=== PATIENT | female | born 1955 | race Caucasian/White ===

== ENCOUNTER 2023-06-03 08:05 | Inpatient (IN) ==
--- NOTE | 2023-05-17 12:15 | PAT Medication Instructions ---
Medication Instructions Date of Service May 17, 2023 Home Medications acetaminophen 325 mg capsule 325 mg PO QID PRN atorvastatin 20 mg tablet (Lipitor) 20 mg PO HS calcium carbonate 600 mg calcium (1,500 mg) tablet (Calcium) 600 mg PO HS cholecalciferol (vitamin D3) 25 mcg (1,000 unit) tablet (Vitamin D3) 25 mcg PO HS famotidine 20 mg tablet (Pepcid) 20 mg PO BID lisinopril 20 mg tablet 20 mg PO QAM multivitamin 1 tab PO QAM DO NOT take the morning of surgery lisinopril 20 mg tablet 20 mg PO QAM multivitamin 1 tab PO QAM Take morning of surgery With a small sip of water, OTHERWISE NOTHING TO EAT OR DRINK AFTER MIDNIGHT: acetaminophen 325 mg capsule 325 mg PO QID PRN(if needed) famotidine 20 mg tablet (Pepcid) 20 mg PO BID Take evening before surgery acetaminophen 325 mg capsule 325 mg PO QID PRN(if needed) atorvastatin 20 mg tablet (Lipitor) 20 mg PO HS calcium carbonate 600 mg calcium (1,500 mg) tablet (Calcium) 600 mg PO HS cholecalciferol (vitamin D3) 25 mcg (1,000 unit) tablet (Vitamin D3) 25 mcg PO HS famotidine 20 mg tablet (Pepcid) 20 mg PO BID Other Notes If you have any questions please call us at [phone] or [phone] or [phone] or [phone]
--- NOTE | 2023-05-19 10:45 | Anesthesiology Consultation ---
Date of Service May 19, 2023 Assessment & Plan (1) Encounter for pre-operative examination: Chart Review Chart Review: Acceptable Risk for Surgery (pending PCP clearance ) and Patient seen in Pre Admission Testing - Awaiting PCP in office clearance 05/23/23 (Dr. He Casas) (please fax preop testing to PCP to review at clearance appt) Per PAT appt on 05/19/23, no recent illness/disease exposures, illness related symptoms, or recent illness/disease positive tests. Will leave to surgeon's discretion if preop Covid testing needed PCP clearance letter 05/17/23= "Moderate risk for proposed surgery. Patient is cleared for scheduled surgery." Teaching & Discussion Pre-Anesthesia Teaching/Discussion Notes: Instructed NPO after midnight before surgery,except medications with 15 cc of water. Medication instructions provided according to the PAT guidelines. History Surgery Operation Date: 06/03/23 10:20 Proposed Procedures p L3-L5 Decompression and Fusion Spinal Cord Monitoring - Saurabh Jaquez DO Height/Weight Height: 5 ft 4 in Weight: 93.6 kg Allergies Allergy/AdvReac Type Severity Reaction Status Date / Time No Known Allergies Allergy Verified 05/17/23 11:13 Medications Home Medications Medication Instructions Recorded Confirmed Last Taken acetaminophen 325 mg capsule 325 mg PO QID PRN Pain 05/17/23 05/17/23 Unknown atorvastatin 20 mg tablet (Lipitor) 20 mg PO HS 05/17/23 05/17/23 Unknown calcium carbonate 600 mg calcium 600 mg PO HS 05/17/23 05/17/23 Unknown (1,500 mg) tablet (Calcium) cholecalciferol (vitamin D3) 25 25 mcg PO HS 05/17/23 05/17/23 Unknown mcg (1,000 unit) tablet (Vitamin D3) famotidine 20 mg tablet (Pepcid) 20 mg PO BID 05/17/23 05/17/23 Unknown lisinopril 20 mg tablet 20 mg PO QAM 05/17/23 05/17/23 Unknown multivitamin 1 tab PO QAM 05/17/23 05/17/23 Unknown Past Medical History Medical History Dyslipidemia GERD (gastroesophageal reflux disease) well controlled and stable (can be aggravated by certain medications) History of COVID-19 09/2022- no hosp; resolved History of peptic ulcer HTN (hypertension) Nausea and vomiting after administration of anesthetic agent Exercise / Class Metabolic Activity III < 4 Walking/Shop/Light housework (one flight of stairs- no chest pain or SOB (goes slow due to back pain)) Past Surgical History Surgical History Hx of colonoscopy Hx of fusion of cervical spine S/P epidural steroid injection last done 03/08/23 Past Anesthesia History No Hx of Anesthesia Complications (with exception to PONV ) and No Family Hx of Anesthesia Complications History of PONV History of PONV and Hx of Motion Sickness Social History Smoking Status: Never smoker Do You Dip or Chew Tobacco: No Hx Alcohol Use: Yes alcohol intake frequency: holidays/special occasions only Hx Substance Use: No substance use type: does not use Review of Systems Patient denies chest pain, shortness of breath, dyspnea on exertion, cough, wheezing, palpitations. No hx of seizures, stroke, MT, apnea/snoring. No hx of blood clots or blood transfusions Physical Exam Vital Signs VITALS BP 151/79 P 99 TEMP 98.3 SP02 98% RESP 16 Constitutional no acute distress ENMT Mouth: no TMJ clicking Thyromental Distance: > or= 3.5 Finger Breadths (3.5) Mallampati Class: III Partial denture on top Missing bottom molars Neck + limited neck extension (significant due to neck fusion ) Respiratory normal respiratory effort; no respiratory distress Auscultation: lungs clear to auscultation bilaterally; no wheezes Cardiovascular Rate/Rhythm: regular rate and regular rhythm Heart Sounds: no murmur Vessels: no carotid bruit Musculoskeletal Spine: + pain with cervical ROM Extremities: extremities normal to inspection Psychiatric Orientation: alert Lab Results Anesthesia Preop Results Results Anesthesia Widget: WBC 8.09 K/ul (4.8-10.8) 05/19/23 Hgb 14.1 g/dl (12.0-16.0) 05/19/23 Hct 43.4 % (37.0-47.0) 05/19/23 Plt 293 K/uL (130-400) 05/19/23 Na 136 mmol/L (136-145) 05/19/23 K 4.3 mmol/L (3.5-5.1) 05/19/23 Cl 102 mmol/L (98-107) 05/19/23 CO2 25 mmol/L (21-32) 05/19/23 BUN 20 mg/dl (6-23) 05/19/23 Creat 0.67 mg/dl (0.6-1.2) 05/19/23 Glucose Level 113 mg/dl (70-99(Fasting)) H 05/19/23 PT 10.9 Seconds (9.0-12.0) 05/19/23 PTT 27 Seconds (21-31) 05/19/23 INR 1.0 (0.9-1.1) 05/19/23 Urine Color Yellow 05/19/23 Urine Appearance Clear (Clear) 05/19/23 Urine pH 5.5 (4.5-7.5) 05/19/23 Urine Specific [place] 1.014 (1.000-1.030) 05/19/23 Urine Protein Negative (Negative) 05/19/23 Urine Glucose (UA) Negative (Negative) 05/19/23 Urine Ketones Trace (Negative) H 05/19/23 Urine Blood Negative (Negative) 05/19/23 Urine Nitrite Negative (Negative) 05/19/23 Urine Bilirubin Negative (Negative) 05/19/23 Urine Urobilinogen Negative (Negative) 05/19/23 Urine Leukocyte Esterase Negative (Negative) 05/19/23 Blood Type A Positive 05/19/23 Antibody Screen NEGATIVE 05/19/23 Testing Electrocardiogram Date: 05/19/23 NSR with sinus arrhythmia at 90bpm Normal EKG per cardio Chest X-Ray Date: 05/19/23 FINDINGS: Lung volumes are normal. Lungs are clear. There is no pneumothorax or pleural effusion. Cardiac size is normal. Mediastinal contours are normal. There is no evidence for pulmonary edema. Postoperative findings within the spine are incidentally noted. IMPRESSION: No acute cardiopulmonary findings.
[2023-06-03] MEDS: LR 15ML/HR IV SCH (08:58)
[2023-06-03] MEDS: CeleBREX 200 MG CAP PO SCH (08:58)
[2023-06-03] MEDS: ACETAMINOPHEN 500 MG TAB PO SCH (08:58)
[2023-06-03] MEDS: GABAPENTIN 300 MG CAP PO SCH (08:58)
[2023-06-03] MEDS: LR 60ML/HR IV SCH (08:59)
[2023-06-03] MEDS ORDERED: LIDOCAINE 2% 2 ML VIAL/AMP(20MG/ML) INFIL ONE (09:15)
[2023-06-03] MEDS ORDERED: PROPOFOL IV EMULSION 10 MG/ML 20 ML VIAL IV ONE (09:15)
[2023-06-03] MEDS ORDERED: ONDANSETRON INJ 2 MG/ML 2 ML VIAL ONE ×2 (09:15→10:45)
[2023-06-03] MEDS ORDERED: DEXAMETHASONE SOD INJ 4 MG/ML VIAL ONE (09:15)
[2023-06-03] MEDS ORDERED: MIDAZOLAM HCL 1 MG/ML 2ML VIAL ONE (09:15)
[2023-06-03] MEDS ORDERED: fentaNYL citrate PF 100 MCG/2 ML VIAL ONE (09:15)
[2023-06-03] MEDS ORDERED: ROCURONIUM BROMIDE 10 MG/ML 5 ML VIAL IV ONE ×2 (09:15→10:47)
[2023-06-03] MEDS ORDERED: ePHEDrine sulfate 50 MG/ML AMP IV PRN (09:38)
[2023-06-03] MEDS ORDERED: ATROPINE SULFATE 0.1 MG/ML 10ML SYR IV PRN (09:38)
[2023-06-03] MEDS ORDERED: ONDANSETRON INJ 2 MG/ML 2 ML VIAL IV PRN (09:38)
--- NOTE | 2023-06-03 09:49 | History & Physical Bridge Note ---
Date of Service June 03, 2023 History & Physical Bridge Note I have examined the patient, reviewed the History & Physical and in the interval since the performance of the History & Physical I have noted the following changes of clinical significance: no changes noted
--- NOTE | 2023-06-03 09:54 | History & Physical Report ---
Date of Service June 03, 2023 Assessment & Plan (1) Neurogenic claudication due to lumbar spinal stenosis: Plan: L3-L5 decompression and fusion History of Present Illness Chief Complaint: Back and bilaterally pain Primary Care Provider: He Casas DO This is a 61-year-old female who presents with chronic system back and bilaterally pain after failing course of nonoperative care she is here for surgical invention. Allergies Allergy/AdvReac Type Severity Reaction Status Date / Time No Known Allergies Allergy Verified 06/03/23 08:45 Home Medications Medication Instructions Recorded Confirmed Type acetaminophen 325 mg capsule 325 mg PO QID PRN Pain 05/17/23 06/03/23 History atorvastatin 20 mg tablet (Lipitor) 20 mg PO HS 05/17/23 06/03/23 History calcium carbonate 600 mg calcium 600 mg PO HS 05/17/23 06/03/23 History (1,500 mg) tablet (Calcium) cholecalciferol (vitamin D3) 25 25 mcg PO HS 05/17/23 06/03/23 History mcg (1,000 unit) tablet (Vitamin D3) famotidine 20 mg tablet (Pepcid) 20 mg PO BID 05/17/23 06/03/23 History lisinopril 20 mg tablet 20 mg PO QAM 05/17/23 06/03/23 History multivitamin 1 tab PO QAM 05/17/23 06/03/23 History Past Med/Surg History Medical History Dyslipidemia GERD (gastroesophageal reflux disease) well controlled and stable (can be aggravated by certain medications) History of COVID-19 09/2022- no hosp; resolved History of peptic ulcer HTN (hypertension) Nausea and vomiting after administration of anesthetic agent Surgical History Hx of colonoscopy Hx of fusion of cervical spine S/P epidural steroid injection last done 03/08/23 Social History Smoking Status: Never smoker Second Hand Exposure: No; Do You Dip or Chew Tobacco: No; Tobacco Cessation Education Requested by Patient: No Hx Alcohol Use: Yes Hx Substance Use: No Preferred Language: Swiss Communication Ability: Effective Wheat Buyer Required: No Beliefs That Will Affect Care: None Current Living Situation: Spouse Other Information That Helps Us Care for You: No Feels Safe at Home: Yes Safety Concerns: Feels Safe At This Time Assistive Devices: Cane, Denture - Upper and Glasses Assistive Devices Comment: cane prn Physical Exam Physical Exam: Patient is alert and oriented Heart regular rhythm Lungs clear Results & Data Results & Data Vital Signs (Past 12 Hours) Vital Signs Temp Pulse Resp BP Pulse Ox O2 Del Method 06/03/23 08:48 36.5 C 106 H 20 137/92 96 Room Air
[2023-06-03] MEDS: ceFAZolin 2000MG 2,000 MG/15 ML SYR IV SCH ×2 (10:24→18:46)
[2023-06-03] MEDS ORDERED: HYDROmorphone INJ 2 MG/ML SYR/VIAL ONE (10:45)
[2023-06-03] MEDS: BUPIVACAINE/EPINEPHRINE 0.5% MPF 1:200,000 30 ML VIAL ONE (12:03)
[2023-06-03] MEDS: ceFAZolin 330 MG/ML 1 GM VIAL ONE (12:03)
[2023-06-03] MEDS ORDERED: ALBUMIN HUMAN 5% 12.5 GM/250 ML VIAL IV ONE (12:22)
[2023-06-03] MEDS ORDERED: SUGAMMADEX SODIUM 200 MG/2 ML VIAL IV ONE (12:28)
[2023-06-03] MEDS ORDERED: ePHEDrine sulfate 50 MG/ML AMP ONE (12:28)
[2023-06-03] MEDS: FLOSEAL HEMOSTATIC MATRIX 10ML TOP ONE (12:34)
--- NOTE | 2023-06-03 12:36 | Operative Report ---
Post Operative Report Pre & Post Diagnosis Operation Date: 06/03/23 10:05 Pre-Op Diagnosis: Spinal Stenosis, Lumbar Region with Neurogenic Claudication Spondylolisthesis L3-L4 L4-5 Post-Op Diagnosis: Same I identified the patient and participated in the time-out.: Yes Procedure Operation Date: 06/03/23 10:05 Actual Procedures #1 lumbar decompression bilaterally facetectomies and foraminotomies L2-L3, L3- L4 and L4-5. #2 posterior spinal fusion L3-L5. #3 placed posterior instrumentation L3-L5. #4 interbody fusion L3-L4 L4-5 #5 placement Spira 12 x 26 mm L3-4 and 13 x 26 mm at L4-5. #6 placement locally harvested morselized autograft in the posterior gutters. #7 placement of infuse collagen sponge combined with Koros in the posterior gutters and course in interbody space. Surgeon Saurabh Jaquez, DO Enamel Machine Operator Reji Butler Estimated Blood Loss 250 Findings See Below The patient is 5 foot 4 weighing over 91 kg with a BMI in excess of 34. The patient's body habitus is patient's body habitus did contribute to significant technical difficulty with positioning exposure and the procedure itself adding at least 50% increased the operative time. Specimens None Indications This is a 67-year-old female who presents problems diagnosis of failed course of nonoperative care is here for surgical invention. Description of Procedure Patient was met with identified informed consent obtained. Patient was then taken to the operative suite underwent patient placed in a prone position on the Jose table atop the Cash frame. All bony promises well-padded eyes inspected to ensure no external pressure placed upon the. This point the lumbar spine was prepped and draped in a sterile fashion. Sharp dissection with the assistance of Bovie cautery form down to and exposing the lamina and transverse processes of L3 L4-5 bilaterally. From caudal to cephalad fashion complete laminectomy L4 L3 and partial laminectomy L2 was performed including bilaterally facetectomies and foraminotomies addressing severe spinal stenosis. Pedicle screws were then placed in L3-L4-L5 bilaterally with assistance of fluoroscopy and the purposes maria alejandra placed. By way of transforaminal approach on the left complete discectomy of L 4 L5 was performed endplates guided to subcortically bone and a 13 x 26 mm Spira cage with I factor tapped in position. Then proceeded to L3-L4 and again by way of transforaminal portion of left complete discectomy performed endplates guided to subcortical mean bone and a 12 x 26 mm Spira cage with I factor tapped the position. The rods were then locked in final position bilaterally but the transverse processes of L3 L4-5 burred to subcortical bleeding bone. Infuse collagen sponge combined with Koros and local autograft placed in posterior gutters. 15 round VERO inserted. The incision was then closed with 1 Vicryl fascia 2-0 Vicryl subcutaneously and 4 Monocryl for final skin closure. Steri-Strips dressings placed. Patient waken taken to PACU stable condition. Please note spinal cord monitoring visualized at the procedure no changes noted. Lastly Reji Butler was present at the entire surgery and while the patient positioning complex course of the surgery and final skin closure. I attest to the content of the Intraoperative Record and any orders documented therein. Any exceptions are noted below.
--- NOTE | 2023-06-03 12:42 | Fluoroscopy Report ---
INTRAOPERATIVE RADIOGRAPHS CLINICAL HISTORY: Lumbar spinal fusion surgery. Fluoro time: 23 seconds Ka,r: 19.54 mGy FINDINGS: 2 spot fluoroscopic views of the lumbar spine are presented. There has been discectomy at L 3-L4 and L4-L5 with laminectomy and posterior fusion at L3-L5. Interpedicular screws are present at a ll levels. The orthopedic hardware appears intact. IMPRESSION: Intraoperative images from lumbar spinal fusion surgery as above. Electronically signed by: Hipolito Greco M.D. 06/03/2023 12:41 PM
[2023-06-03] MEDS: fentaNYL citrate PF 100 MCG/2 ML VIAL IV PRN (13:08)
[2023-06-03] MEDS ORDERED: HYDROmorphone INJ 0.5 MG/0.5 ML SYR IV PRN ×2 (13:30→14:33)
[2023-06-03] MEDS: fentaNYL citrate PF 100 MCG/2 ML VIAL IV SCH (13:33)
--- NOTE | 2023-06-03 14:02 | Anesthesiology Progress Note ---
Date of Service June 03, 2023 Anesthesia Post Procedure Vital Signs Vital Signs: Temp Pulse Pulse Resp BP BP Pulse Ox 06/03/23 13:40 79 20 128/75 100 06/03/23 13:30 78 18 127/68 96 06/03/23 13:20 81 14 122/71 97 06/03/23 13:10 87 17 124/68 97 06/03/23 13:00 88 14 133/79 96 06/03/23 12:56 36.1 C L 89 15 146/83 H 97 06/03/23 08:48 36.5 C 106 H 20 137/92 96 O2 Del Method O2 Flow Rate 06/03/23 13:40 Nasal Cannula 2 06/03/23 13:30 Room Air 06/03/23 13:20 Room Air 06/03/23 13:10 Room Air 06/03/23 13:00 Room Air 06/03/23 12:56 Room Air 06/03/23 08:48 Room Air Pain Intensity Bilateral Lower Back: Pain Intensity: 5 Transfer of Care Handoff Completed per policy Notes Mental Status: alert / awake / arousable and participated in evaluation Patient Amnestic to Procedure: Yes Nausea / Vomiting: adequately controlled Pain: adequately controlled Airway Patency, RR, SpO2: stable & adequate BP & HR: stable & adequate Hydration State: stable & adequate Anesthetic Complications: no major complications apparent
[2023-06-03] MEDS ORDERED: ACETAMINOPHEN 500 MG TAB PO PRN (14:33)
[2023-06-03] MEDS ORDERED: DO NOT ADMINISTER FLU VACCINE PRN (14:33)
[2023-06-03] MEDS ORDERED: HYDROmorphone INJ 1 MG/ML SYRINGE IV PRN (14:33)
[2023-06-03] MEDS ORDERED: LORazepam 0.5 MG in SYRINGE 0.25 ML IV PRN (14:33)
[2023-06-03] MEDS ORDERED: ALUMINUM/MAGNESIUM SUSP 30 ML UDC PO PRN (14:33)
[2023-06-03] MEDS ORDERED: diphenhydrAMINE Capsule 25 MG CAP PO PRN (14:33)
[2023-06-03] MEDS ORDERED: SOD PHOSPHATE/SOD BIPHOSPHATE ENEMA 132 ML BTL PR PRN (14:33)
[2023-06-03] MEDS ORDERED: hydrOXYzine HCl 25 MG TAB PO PRN (14:33)
[2023-06-03] MEDS ORDERED: PROMETHAZINE HCL 12.5 MG in SODIUM CHLORIDE 0.9% 50 ML IV PRN (14:33)
[2023-06-03] MEDS ORDERED: ONDANSETRON 4 MG OD TAB PO PRN (14:33)
[2023-06-03] MEDS ORDERED: LORazepam 0.5 MG TAB PO PRN (14:33)
[2023-06-03] MEDS ORDERED: bisacodyL 10 MG SUPP PR PRN (14:33)
[2023-06-03] MEDS ORDERED: NALOXONE HCL 0.4 MG/1 ML VIAL/CARP IV PRN (14:33)
[2023-06-03] MEDS ORDERED: MAGNESIUM HYDROXIDE SUSP 30 ML UDC PO PRN (14:33)
[2023-06-03] MEDS ORDERED: METOCLOPRAMIDE HCL INJ 5 MG/ML 2 ML VIAL IV PRN (14:33)
[2023-06-03] MEDS ORDERED: ACETAMINOPHEN 1,000 MG/100 ML VIAL IV PRN (14:33)
[2023-06-03] MEDS ORDERED: DO NOT ADMINISTER PNEUMOCOCCAL VACCINE PRN (14:33)
[2023-06-03] MEDS: LACTATED RINGER'S 1,000 ML IV SCH (15:06)
[2023-06-03] MEDS: HYDROmorphone INJ 1 MG/ML SYRINGE ONE (15:26)
[2023-06-03] MEDS: fentaNYL citrate PF 100 MCG/2 ML VIAL IV ONE (15:26)
[2023-06-03] MEDS: oxyCODONE HCL IR 5 MG TAB (IMMEDIATE RELEASE) PO PRN (17:33)
--- NOTE | 2023-06-03 18:02 | Hospitalist Consultation ---
Date of Consultation June 03, 2023 Assessment & Plan (1) Neurogenic claudication due to lumbar spinal stenosis: POD#0 L3-L5 decompression and fusion by Dr. Jaquez Activity and wound care orders as per ortho Pain control with bowel regimen PT/OT Monitor H/H for acute blood loss anemia and transfuse blood products PRN EBL 250 cc (2) HTN (hypertension): Chronic, stable Continue lisinopril (3) Dyslipidemia: Chronic, stable Continue statin (4) GERD (gastroesophageal reflux disease): Chronic, stable Continue famotidine DVT PROPHYLAXIS TEDs/SCDs as per spine Ortho Patient seen in collaboration with Dr. Rosas. Thank you for this consultation. We will follow the patient with you during their hospital stay. You can reach a member of the [facility]ist Team 15/11 via the [facility] role in [place] [employer]. Supervising Physician Co-Signing Physician Notes I have seen and examined the patient and have discussed the case with the provider above. I have reviewed the advanced practitioner's documentation, and I agree with, and take responsibility for that plan of care. DO Ralph History of Present Illness Reason for Consultation: Postop medical management Requesting Physician: Dr. Jaquez Attending Physician: Saurabh Jaquez DO History of Present Illness 67-year-old female with PMH dyslipidemia, GERD, HTN, and other problems listed below who is s/p L3-L5 decompression and fusion today by Dr. Jaquez. History is obtained from the patient and review of outpatient PCP records. Postoperative, the patient is doing well. She reports her pain is well-controlled. Denies numbness, tingling, weakness to lower extremities. No chest pain or shortness of breath. Reports some mild nausea that is resolving, no abdominal pain. Denies lightheadedness and dizziness. Dior catheter is in place draining clear yellow urine. Allergies Allergy/AdvReac Type Severity Reaction Status Date / Time No Known Allergies Allergy Verified 06/03/23 08:45 Home Medications Medication Instructions Recorded Confirmed Type acetaminophen 325 mg capsule 325 mg PO QID PRN Pain 05/17/23 06/03/23 History atorvastatin 20 mg tablet (Lipitor) 20 mg PO HS 05/17/23 06/03/23 History calcium carbonate 600 mg calcium 600 mg PO HS 05/17/23 06/03/23 History (1,500 mg) tablet (Calcium) cholecalciferol (vitamin D3) 25 25 mcg PO HS 05/17/23 06/03/23 History mcg (1,000 unit) tablet (Vitamin D3) famotidine 20 mg tablet (Pepcid) 20 mg PO BID 05/17/23 06/03/23 History lisinopril 20 mg tablet 20 mg PO QAM 05/17/23 06/03/23 History multivitamin 1 tab PO QAM 05/17/23 06/03/23 History Patient History Medical History (Updated 06/03/23 @ 18:00 by RIVERA Hernandez) GERD (gastroesophageal reflux disease) well controlled and stable (can be aggravated by certain medications) HTN (hypertension) Dyslipidemia History of peptic ulcer Nausea and vomiting after administration of anesthetic agent History of COVID-19 09/2022- no hosp; resolved Surgical History S/P epidural steroid injection last done 03/08/23 Hx of colonoscopy Hx of fusion of cervical spine Social History Smoking Status: Never smoker Second Hand Exposure: No; Do You Dip or Chew Tobacco: No; Tobacco Cessation Education Requested by Patient: No Hx Alcohol Use: Yes Hx Substance Use: No Preferred Language: Ugandan Communication Ability: Effective Blind Cleaner Required: No Beliefs That Will Affect Care: None Current Living Situation: Spouse Other Information That Helps Us Care for You: No Feels Safe at Home: Yes Safety Concerns: Feels Safe At This Time Assistive Devices: Raised Toilet Seat Assistive Devices Comment: cane prn Physical Exam Constitutional: WD/WN, vitals as above no acute distress Eyes: PERRL, conjunctivae normal, anicteric sclerae ENMT: external ear and nose normal, oropharynx normal Respiratory: normal respiratory effort, lungs clear to auscultation Cardiovascular: Rate/Rhythm: regular rate and regular rhythm Vessels: normal peripheral pulses Extremities: no edema Gastrointestinal (Abdomen): normal bowel sounds, soft, nontender, no hepatosplenomegaly Musculoskeletal: no cyanosis or clubbing, extremities motor strength 5/5 S/p back surgery, pedal pushes and pulls strong bilaterally, drain in place draining bloody drainage Skin: no rashes, warm and dry Neurologic: PERRL, EOMI, accommodation nl, no face palsy, no dysarthria Psychiatric: A+Ox3, euthymic affect Results & Data Results & Data Vital Signs (Past 12 Hours) Vital Signs Temp Pulse Pulse Resp BP BP Pulse Ox 06/03/23 17:12 36.4 C L 72 16 137/80 99 06/03/23 16:13 36.4 C L 64 16 124/73 99 06/03/23 15:09 36.4 C L 69 16 126/73 99 06/03/23 14:46 36.4 C L 66 16 132/77 99 06/03/23 14:10 36.4 C L 69 16 148/78 H 95 06/03/23 13:50 36.4 C L 70 18 136/73 99 06/03/23 13:40 79 20 128/75 100 06/03/23 13:30 78 18 127/68 96 06/03/23 13:20 81 14 122/71 97 06/03/23 13:10 87 17 124/68 97 06/03/23 13:00 88 14 133/79 96 06/03/23 12:56 36.1 C L 89 15 146/83 H 97 06/03/23 08:48 36.5 C 106 H 20 137/92 96 O2 Del Method O2 Flow Rate 06/03/23 17:12 Room Air 06/03/23 16:13 Room Air 06/03/23 15:09 Room Air 06/03/23 14:46 Room Air 06/03/23 14:10 Room Air 06/03/23 13:50 Nasal Cannula 2 06/03/23 13:40 Nasal Cannula 2 06/03/23 13:30 Room Air 06/03/23 13:20 Room Air 06/03/23 13:10 Room Air 06/03/23 13:00 Room Air 06/03/23 12:56 Room Air 06/03/23 08:48 Room Air
[2023-06-03] MEDS: ATORVASTATIN 20 MG TAB PO SCH (20:23)
[2023-06-03] MEDS: DOCUSATE SODIUM/SENNA 50/8.6MG TAB PO SCH (20:23)
[2023-06-03] MEDS: CALCIUM CARBONATE 1250MG TAB PO SCH (20:23)
[2023-06-03] MEDS: CHOLECALCIFEROL 25 MCG (1000 UNITS) TAB PO SCH (20:23)
[2023-06-03] MEDS: FAMOTIDINE 20 MG TAB PO SCH (20:24)
[2023-06-03] MEDS: traMADol HCL 50 MG TABLET PO PRN (20:35)
[2023-06-03] MEDS: ONDANSETRON INJ 2 MG/ML 2 ML VIAL IV PRN (21:49)
[2023-06-04] MEDS: POLYETHYLENE (MIRALAX) 17 GM PACK PO SCH (05:03)
[2023-06-04 06:51] LABS: Basophils # (auto) 0.03 K/uL (0.00-0.20); Basophils % (auto) 0.3 %; Eosinophils # (auto) 0.02 K/uL (0.00-0.50); Eosinophils % (auto) 0.2 %; Hematocrit (blood only) 32.8 % (37.0-47.0); Hemoglobin 10.6 g/dl (12.0-16.0); Immature Granulocytes # (auto) 0.05 K/uL (0.01-0.20); Immature Granulocytes % (auto) 0.4 %; Lymphocytes # (auto) 1.69 K/uL (1.20-3.40); Lymphocytes % (auto) 14.8 %; Mean Corpuscular Hemoglobin 29.4 pg (25.0-34.0); Mean Corpuscular Hgb Conc 32.3 g/dL (32.0-36.0); Mean Corpuscular Volume 90.9 fL (80.0-100.0); Mean Platelet Volume 9.7 fL (9.4-12.4); Monocytes # (auto) 1.14 K/uL (0.11-0.59); Neutrophils # (auto) 8.52 K/uL (1.40-6.50); Neutrophils % (auto) 74.3 %; Platelet Count 210 K/uL (130-400); RDW Coefficient of Variation 12.8 % (11.5-14.5); RDW Standard Deviation 42.3 fL (36.4-46.3); Red Blood Count 3.61 M/uL (4.20-5.40); White Blood Count 11.45 K/ul (4.8-10.8)
[2023-06-04 07:58] LABS: Calcium 8.8 mg/dl (8.6-10.3); Potassium 3.9 mmol/L (3.5-5.1)
[2023-06-04 08:03] LABS: BUN Creatinine Ratio 22.4 (10-20); Creatinine Clr Calc Pharmacy 123.5 ml/min; Est GFR (African American) 117.7 ml/min; Est GFR (Non-African American) 101.5 ml/min
[2023-06-04] MEDS: lisinopril 20 MG TAB PO SCH (08:21)
[2023-06-04] MEDS: MULTIVITAMIN TAB PO SCH (08:21)
[2023-06-04] MEDS: dexAMETHasone 6 MG in SYRINGE 0 ML IV SCH (08:21)
--- NOTE | 2023-06-04 08:35 | Orthopedic Progress Note ---
Date of Service June 04, 2023 Assessment & Plan (1) Neurogenic claudication due to lumbar spinal stenosis: Plan: Ada is postoperative day 1 status post L3-5 decompression and instrumented fusion. Will start physical therapy today. Continue with pain control. DVT prophylaxis is in the form of teds and SCDs. Continue with aggressive bowel regimen. Maintain VERO drain. Anticipate discharge home early next week. Admission and Anticipated Discharge Date Admission Date: June 03, 2023 Subjective Ada is postoperative day 1 status post L3-5 decompression and instrumented fusion. She has some back pain. No radicular leg pain. VERO drain output last shift is 70 cc. H&H this morning are 10.6 and 32.8 respectively. Review of Systems Review of Systems: All systems reviewed & are unremarkable except as noted in HPI & below Physical Exam Physical Exam: Alert and oriented x 3 eating breakfast No acute distress Lumbar dressing is clean dry and intact with functioning VERO drain Strength is intact bilateral lower extremities Results & Data Vital Signs (Past 12 Hours) Vital Signs Temp Pulse Resp BP Pulse Ox O2 Del Method 06/04/23 07:47 36.7 C 68 16 122/73 99 Room Air 06/04/23 04:51 36.6 C 71 18 131/74 98 Room Air 06/04/23 00:19 36.9 C 73 18 113/67 94 Room Air
--- NOTE | 2023-06-04 12:46 | Hospitalist Progress Note ---
Date of Service June 04, 2023 Assessment & Plan (1) Neurogenic claudication due to lumbar spinal stenosis: Plan: Lumbar spinal stenosis with neurogenic claudication --S/P lumbar decompression, fusion surgery by Dr. Jaquez on 06/03/2023 Acute postoperative blood loss anemia Continue incentive spirometry Bowel regimen to prevent constipation No indication for blood transfusion currently Continue local wound care Activity, DVT prophylaxis as per primary team Pain is control Continue PT OT Monitor CBC Mild leukocytosis likely reactive and secondary to Decadron (2) HTN (hypertension): Plan: Chronic, stable Continue lisinopril (3) Dyslipidemia: Plan: Chronic, stable Continue statin (4) GERD (gastroesophageal reflux disease): Plan: Chronic, stable Continue famotidine CODE STATUS Full code DVT Px Disposition As per primary team Admission and Anticipated Discharge Date Admission Date: June 03, 2023 Subjective Patient is seen and examined at bedside Back pain at surgical site is controlled Had ambulated in hallway earlier today + Flatus, no bowel movement today Denies any chest pain, dyspnea, dizziness, nausea, vomiting, abdominal pain No other complaints Review of Systems Review of Systems: All systems reviewed & are unremarkable except as noted in Subjective Physical Exam Physical Exam: Physical Exam: Vitals signs as noted above General Appearance:Obese, no apparent distress Head: normocephalic, Atraumatic Eyes: normal inspection, EOMI Neck: supple, Trachea midline Respiratory/Chest: Normal breath sounds, CTA, No accessory muscle use Cardiovascular: S1, S2, No murmur Abdomen/GI:Soft, Non tender, Bowel sounds present Back: Surgical site in dressing, +drain Extremities/Musculoskeletal:normal inspection, Trace pedal edema Neurologic/Psych:AAOX3, grossly no focal neurological deficits Skin: normal color, warm Results & Data Results & Data Vital Signs (Past 12 Hours) Vital Signs Temp Pulse Resp BP Pulse Ox O2 Del Method 06/04/23 07:47 36.7 C 68 16 122/73 99 Room Air 06/04/23 04:51 36.6 C 71 18 131/74 98 Room Air Laboratory Results Short CBC 06/04/23 Range/Units 06:28 WBC 11.45 H (4.8-10.8) K/ul Hgb 10.6 L (12.0-16.0) g/dl Hct 32.8 L (37.0-47.0) % Plt Count 210 (130-400) K/uL BMP 06/04/23 06:28 Sodium 138 Potassium 3.9 Chloride 106 Carbon Dioxide 23 BUN 11 Creatinine 0.49 L Glucose 114 H Calcium 8.8
[2023-06-04 23:35] LABS: Hematocrit (blood only) 31.2 % (37.0-47.0); Hemoglobin 10.6 g/dl (12.0-16.0)
[2023-06-04] MEDS: NSS + 20MEQ KCL 20 MEQ/1,000 ML BAG IV ONE (23:48)
[2023-06-04 23:52] LABS: BUN Creatinine Ratio 30.4 (10-20); Calcium 8.8 mg/dl (8.6-10.3); Est GFR (African American) 112.6 ml/min; Est GFR (Non-African American) 97.2 ml/min; Magnesium 1.5 mg/dl (1.7-2.4); Potassium 3.8 mmol/L (3.5-5.1)
[2023-06-05] MEDS: MAGNESIUM SULFATE / D5W 1 GM/100 ML BAG IV SCH (00:24)
[2023-06-05 08:01] LABS: Hematocrit (blood only) 33.3 % (37.0-47.0); Mean Corpuscular Hemoglobin 29.6 pg (25.0-34.0); Mean Corpuscular Volume 89.8 fL (80.0-100.0); Mean Platelet Volume 9.7 fL (9.4-12.4); Platelet Count 226 K/uL (130-400); RDW Coefficient of Variation 12.9 % (11.5-14.5); RDW Standard Deviation 42.7 fL (36.4-46.3); Red Blood Count 3.71 M/uL (4.20-5.40); White Blood Count 10.46 K/ul (4.8-10.8)
--- NOTE | 2023-06-05 08:24 | Orthopedic Progress Note ---
Date of Service June 05, 2023 Assessment & Plan (1) Neurogenic claudication due to lumbar spinal stenosis: Plan: Ada is postoperative day 2 status post L3-5 decompression and fusion. Will continue with physical therapy today. Continue with pain control. Maintain VERO drain. DVT prophylaxis is in the form teds and SCDs. Anticipate discharge home tomorrow Admission and Anticipated Discharge Date Admission Date: June 03, 2023 Subjective Ada is postoperative day 2 status post L3-5 decompression and fusion. Has complaints of back pain. No radicular leg pain that has resolved. VERO drain output last shift was 70 cc. H&H this morning are 10.6 and 31.2 respectively. Yesterday in physical therapy Ambulating 150 feet. She is passing flatus but no bowel movement yet. Review of Systems Review of Systems: All systems reviewed & are unremarkable except as noted in HPI & below Physical Exam Physical Exam: Alert and oriented x 3 No acute distress lumbar dressing is clean dry and intact with functioning VERO drain Calf soft and nontender bilaterally Strength intact bilateral lower extremities Results & Data Vital Signs (Past 12 Hours) Vital Signs Temp Pulse Resp BP Pulse Ox O2 Del Method 06/05/23 08:02 36.7 C 72 16 127/69 98 Room Air 06/04/23 22:35 36.4 C L 72 14 134/81 97 Room Air
[2023-06-05 08:25] LABS: BUN Creatinine Ratio 22.2 (10-20); Calcium 9.3 mg/dl (8.6-10.3); Est GFR (Non-African American) 98.3 ml/min; Magnesium 1.9 mg/dl (1.7-2.4); Potassium 3.7 mmol/L (3.5-5.1)
--- NOTE | 2023-06-05 14:00 | Hospitalist Progress Note ---
Date of Service June 05, 2023 Assessment & Plan (1) Neurogenic claudication due to lumbar spinal stenosis: Plan: Lumbar spinal stenosis with neurogenic claudication --S/P lumbar decompression, fusion surgery by Dr. Jaquez on 06/03/2023 Acute postoperative blood loss anemia Continue incentive spirometry Bowel regimen to prevent constipation No indication for blood transfusion currently Continue local wound care Activity, DVT prophylaxis as per primary team Pain is control Continue PT OT Monitor CBC Mild leukocytosis likely reactive/due to Decadron Continue VERO drain per surgery Likely discharge home tomorrow Hb 11.0 Today (2) HTN (hypertension): Plan: Chronic, stable Continue lisinopril (3) Dyslipidemia: Plan: Chronic, stable Continue statin (4) GERD (gastroesophageal reflux disease): Plan: Chronic, stable Continue famotidine CODE STATUS Full code DVT Px Disposition As per primary team Admission and Anticipated Discharge Date Admission Date: June 03, 2023 Subjective Patient is seen and examined at bedside No new complaints Back pain is controlled no bowel movement yet Denies any chest pain, dyspnea, dizziness, nausea, vomiting, abdominal pain Review of Systems Review of Systems: All systems reviewed & are unremarkable except as noted in Subjective Physical Exam Physical Exam: Physical Exam: Vitals signs as noted above General Appearance:Obese, no apparent distress Head: normocephalic, Atraumatic Eyes: normal inspection, EOMI Neck: supple, Trachea midline Respiratory/Chest: Normal breath sounds, CTA, No accessory muscle use Cardiovascular: S1, S2, No murmur Abdomen/GI:Soft, Non tender, Bowel sounds present Back: Surgical site in dressing, +drain Extremities/Musculoskeletal:normal inspection, Trace pedal edema Neurologic/Psych:AAOX3, grossly no focal neurological deficits Skin: normal color, warm Results & Data Results & Data Vital Signs (Past 12 Hours) Vital Signs Temp Pulse Resp BP Pulse Ox O2 Del Method 06/05/23 08:02 36.7 C 72 16 127/69 98 Room Air Laboratory Results Short CBC 06/04/23 06/05/23 Range/Units 23:01 07:43 WBC 10.46 (4.8-10.8) K/ul Hgb 10.6 L 11.0 L (12.0-16.0) g/dl Hct 31.2 L 33.3 L (37.0-47.0) % Plt Count 226 (130-400) K/uL BMP 06/04/23 06/05/23 23:01 07:43 Sodium 136 135 L Potassium 3.8 3.7 Chloride 103 101 Carbon Dioxide 24 28 BUN 17 12 Creatinine 0.56 L 0.54 L Glucose 136 H 124 H Calcium 8.8 9.3
[2023-06-06] MEDS: FAMOTIDINE 20 MG TAB PO PRN (02:00)
[2023-06-06 08:29] LABS: Hematocrit (blood only) 32.5 % (37.0-47.0); Hemoglobin 10.8 g/dl (12.0-16.0); Mean Corpuscular Hemoglobin 29.8 pg (25.0-34.0); Mean Corpuscular Hgb Conc 33.2 g/dL (32.0-36.0); Mean Corpuscular Volume 89.5 fL (80.0-100.0); Mean Platelet Volume 10.2 fL (9.4-12.4); Platelet Count 270 K/uL (130-400); RDW Coefficient of Variation 12.8 % (11.5-14.5); RDW Standard Deviation 41.9 fL (36.4-46.3); Red Blood Count 3.63 M/uL (4.20-5.40); White Blood Count 11.61 K/ul (4.8-10.8)
[2023-06-06 08:42] LABS: Calcium 9.5 mg/dl (8.6-10.3); Est GFR (African American) 116.9 ml/min; Est GFR (Non-African American) 100.9 ml/min; Potassium 4.1 mmol/L (3.5-5.1)
--- NOTE | 2023-06-06 09:43 | Discharge Summary ---
Date of Service June 06, 2023 Admission HPI Per Admitting Provider This is a 61-year-old female who presents with chronic system back and bilaterally pain after failing course of nonoperative care she is here for surgical invention. Principal Diagnosis Lumbar spine stenosis with neurogenic claudication Discharge Data Allergies Allergy/AdvReac Type Severity Reaction Status Date / Time No Known Allergies Allergy Verified 06/03/23 08:45 Consultations 06/03/23 14:33 Consult Hospitalist Routine Procedures Performed Operation Date: 06/03/23 10:05 Actual Procedures p L3-L5 Decompression and Fusion, Spinal Cord Monitoring(Not Applicable) - Saurabh Jaquez DO Ordered Studies 06/03/23 [place] lumbar spine 2-3V Routine Hospital Course (1) Neurogenic claudication due to lumbar spinal stenosis: Patient went lumbar decompression fusion tolerated this well was taken to ortho pedic floor. Postop patient progressed appropriate. Ambulation improving. VERO drain decreasing appropriate. Excellent strength testing. Simply discharged home. Discharge orders instructions from the chart for further review. Total Time Total Time Spent Total Time Spent (In Minutes): 20 minutes Discharge Plan Discharge Items Patient Disposition: Home - Self-Care Reason For Visit: Spinal Stenosis, Lumbar Region with Neurogenic Cla Discharge Diagnosis: Lumbar spinal stenosis with neurogenic claudication Activity: As commented below Non-emergency contact: Primary Care Provider Call non-emergency contact if: you have any medication questions Follow-up/Referrals: He Casas DO [Primary Care Provider] - Diet: Regular Addtl Attending Provider Instructions: ACTIVITY RECOMMENDATIONS: SELF CARE INSTRUCTIONS AFTER THORACIC/LUMBAR FUSIONS 1. You may walk to your tolerance. It is good exercise for your legs and back. Expect some back and intermittent leg aches and pains. 2. You may perform "counter-top" level activities (make a sandwich, santos with a project, etc.). 3. No bending or lifting of more than 10 pounds or back twisting of any nature (roll like a log when turning in bed). 4. You may ride in a car for 20-30 minutes at a time. No driving until after your first visit with your doctor. 5. Frequent changes of position and restricting sitting to 30 minutes at a time will help limit the amount of back spasms and stiffness you may experience. 6. You may discontinue the use of ambulatory aids (cane, crutches, etc.) once your strength and confidence allow. 7. You may gelatin powder mixer the shower and let water strike your incision when you arrive home at least once daily. Do not take a tub bath, sit in a hot tub or go into a swimming pool until after your first recheck in the office. SPECIAL CARE INSTRUCTIONS: VERY IMPORTANT TO READ AND REVIEW A. Your surgical incision has been closed with a cosmetic suture under the skin that will dissolve in about 6 weeks. In 14 days, you can use a pair of clean scissors and cut the suture that is left outside of the skin at the ends of your incision. 1. The small skin tapes can be removed 7 days after surgery if they have not fallen off by that point. 2. You may keep the wound open to air as much as possible to promote healing after post-op day number 5 unless told otherwise by your doctor. 3. If you think the wound looks like it is becoming infected (redness or worsening drainage) and/or you are experiencing fever, chill or worsening back pain and muscle spasms, contact the office so that we may evaluate you as soon as possible. B. Complications are uncommon, but please contact us if you have any signs or symptoms of: 1. wound infection (fever higher than 102.5 degrees F, redness, separation of wound, drainage, or increasing pain from the incision) 2. blood clots in legs (pain, swelling, redness and warmth in legs) 3. urinary tract infection (fever higher than 102.5 degrees F, burning upon urination or increased frequency of urination) 4. nerve problems (inability to walk on your toes or heels, numbness, loss of bowel or bladder control) 5. any other symptoms that concern you C. Please call the office at if you have any concerns or questions about your operation or recovery. D. No smoking! Smoking drastically decreases the chance of a solid fusion. E. Do not take any anti-inflammatory medications (Indocin, Advil, Motrin, Aspirin, Naprosyn, etc.) as these may inhibit the chance of a solid fusion. Tylenol is okay to take for pain. MANAGING PAIN AFTER SPINAL SURGERY 1. Narcotic medication is intended for short-term use and will be provided for surgical pain. Surgical pain usually lasts for a period of 4-6 weeks. Narcotic medication includes Percocet, Vicodin, Darvocet, Tylenol #3 or Lortab. 2. Longer-term pain is more appropriately treated with non-narcotic medication such as Tylenol ES. 3. Muscle spasm is not appropriately treated with narcotics. Muscle relaxers such as Soma, Flexeril or Skelaxin can be used along with Tylenol ES. 4. Remember that we all live with some "aches and pains". This is not unusual or uncommon after an injury or as we get older. a. Back pain is expected and may include muscle spasms for 4 to 6 weeks after surgery. The pain should gradually improve. If the pain worsens for no apparent reason, please contact the office. b. Intermittent leg pain may also be experienced and should not be concerned about unless it worsens for no apparent reason. If so, please contact the office. 5. We will provide appropriate medication within the normal guidelines of their prescribed use. We will also be very cautious and aware of potential abuse and extended duration of patients' medication needs. a. Pain medications are for your comfort and to assist with sleep and rest so that the tissue can heal. They are not provided in order to return to normal activity and should not be used through the day. To do so or worsening pain at night can result from ongoing tissue damage and development of tolerance to the prescribed medicine. 6. Please allow 2-3 days to process refills. Prescriptions will not be mailed but must be picked up at the office. FOLLOW UP VISIT: Keep your scheduled follow-up appointment. Any questions, please call the office at . Pending Studies at Discharge: No Stand-Alone Forms: My [facility], Smoking Cessation Medications and DE Order Prescriptions: New tramadol 50 mg tablet 50 mg PO Q6H PRN (Reason: pain, moderate) Qty: 20 0RF oxycodone 5 mg tablet 5 mg PO Q6H PRN (Reason: pain) Qty: 20 0RF Continued multivitamin Tablet 1 tab PO QAM atorvastatin [Lipitor] 20 mg Tablet 20 mg PO HS lisinopril 20 mg Tablet 20 mg PO QAM calcium carbonate [Calcium 600] 600 mg calcium (1,500 mg) Tablet 600 mg PO HS famotidine [Pepcid] 20 mg Tablet 20 mg PO BID acetaminophen 325 mg Capsule 325 mg PO QID PRN (Reason: Pain) cholecalciferol (vitamin D3) [Vitamin D3] 25 mcg (1,000 unit) Tablet 25 mcg PO HS Discharge Orders: Discharge Order (Routine); Ordered 06/06/23 Ordered By: Saurabh Jaquez Admission Data Admit Date/Time: 06/03/23 12:40 Attending Provider: Saurabh Jaquez Admit Provider: Saurabh Jaquez Primary Care Provider: He Casas Other Providers: Laura Rosas
--- NOTE | 2023-06-06 13:05 | Hospitalist Progress Note ---
Date of Service June 06, 2023 Assessment & Plan (1) Neurogenic claudication due to lumbar spinal stenosis: Plan: Lumbar spinal stenosis with neurogenic claudication --S/P lumbar decompression, fusion surgery by Dr. Jaquez on 06/03/2023 Acute postoperative blood loss anemia Continue incentive spirometry Bowel regimen to prevent constipation No indication for blood transfusion currently Continue local wound care Activity, DVT prophylaxis as per primary team Pain is control Continue PT OT Monitor CBC Mild leukocytosis likely reactive/due to Decadron Hb stable Advised to follow-up with PCP in 1 week upon discharge (2) HTN (hypertension): Plan: Chronic, stable Continue lisinopril (3) Dyslipidemia: Plan: Chronic, stable Continue statin (4) GERD (gastroesophageal reflux disease): Plan: Chronic, stable Continue famotidine CODE STATUS Full code DVT Px Disposition As per primary team Admission and Anticipated Discharge Date Admission Date: June 03, 2023 Subjective Patient is seen and examined at bedside Drain is planned to be removed today prior to discharge Plan to be discharged home today Back pain is controlled Denies any chest pain, dyspnea, dizziness, nausea, vomiting, abdominal pain No other complaints Review of Systems Review of Systems: All systems reviewed & are unremarkable except as noted in Subjective Physical Exam Physical Exam: Physical Exam: Vitals signs as noted above General Appearance:Obese, no apparent distress Head: normocephalic, Atraumatic Eyes: normal inspection, EOMI Neck: supple, Trachea midline Respiratory/Chest: Normal breath sounds, CTA, No accessory muscle use Cardiovascular: S1, S2, No murmur Abdomen/GI:Soft, Non tender, Bowel sounds present Back: Surgical site in dressing Extremities/Musculoskeletal:normal inspection, Trace pedal edema Neurologic/Psych:AAOX3, grossly no focal neurological deficits Skin: normal color, warm Results & Data Results & Data Vital Signs (Past 12 Hours) Vital Signs Temp Pulse Pulse Resp BP Pulse Ox O2 Del Method 06/06/23 08:05 36.3 C L 76 14 138/88 96 Room Air 06/06/23 08:00 Room Air 06/06/23 06:48 36.5 C 78 16 127/77 97 Room Air Laboratory Results Short CBC 06/06/23 Range/Units 07:37 WBC 11.61 H (4.8-10.8) K/ul Hgb 10.8 L (12.0-16.0) g/dl Hct 32.5 L (37.0-47.0) % Plt Count 270 (130-400) K/uL BMP 06/06/23 07:37 Sodium 135 L Potassium 4.1 Chloride 101 Carbon Dioxide 28 BUN 13 Creatinine 0.50 L Glucose 124 H Calcium 9.5
== END 2023-06-06 12:44 | disposition home or self-care (01) | DRG 454 ==
LOC: ASU 08:05 → 3E 12:40